=== PATIENT | female | born 1950 | race African-American/Black ===

== ENCOUNTER 2018-06-26 15:46 | Emergency (ER) | payer OTHER ==
[2018-06-26 15:53] VITALS: BP 160/80; PULSE 100; TEMP 98.2; BMI 30.2
--- NOTE | 2018-06-26 15:53 | PDOC ---
Rapid Medical Evaluation Time Seen by Provider: 06/26/18 15:51 Medical Evaluation: Allergies Allergy/AdvReac Type Severity Reaction Status Date / Time No Known Allergies Allergy Verified 04/06/14 14:15 I have performed a brief in-person evaluation of this patient. The patient presents with a chief complaint of: itch rash x 1 week. Pertinent physical exam findings: small bites to arms I have ordered the following: nothing The patient will proceed to the ED for further evaluation. Discharge Disposition - Diagnosis Rash and nonspecific skin eruption - Referrals - Patient Instructions - Post Discharge Activity
--- NOTE | 2018-06-26 16:28 | PDOC ---
History of Present Illness - General Chief Complaint: Rash Stated Complaint: RASH Time Seen by Provider: 06/26/18 15:51 - History of Present Illness Initial Comments: 68-year-old female with a past medical history significant for hypertension presents for evaluation of diffuse rash on her body times one week. She first noticed a rash on her neck which then extends to her back and bilateral upper extremities. She has no other associated symptoms besides itching no systemic symptoms 06/26/18 16:22 Past History - Past Medical History Allergies/Adverse Reactions: Allergies Allergy/AdvReac Type Severity Reaction Status Date / Time No Known Allergies Allergy Verified 06/26/18 15:53 Home Medications: Ambulatory Orders Ibuprofen [Motrin -] 400 mg PO DAILY PRN 12/03/13 Docusate Sodium [Colace] 100 mg PO TID #90 capsule 04/06/14 Hemorrhoidal Rectal Ointment [Anusol] 30 gm NR TID #1 tube 04/06/14 Lisinopril/Hydrochlorothiazide [Lisinopril-Hctz 20-12.5 mg Tab] 1 each PO DAILY #14 tablet 04/06/14 Permethrin 60 gm TP ONCE #1 cream..g. 06/26/18 COPD: No HTN: Yes - Surgical History Abdominal Surgery: Yes ("LT TUBES GROWED TO ABD WALL") Appendectomy: Yes - Immunization History Immunization Up to Date: Yes - Suicide/Smoking/Psychosocial Hx Smoking History: Current some day smoker Have you smoked in the past 12 months: Yes Number of Cigarettes Smoked Daily: 6 Information on smoking cessation initiated: No Hx Alcohol Use: No Drug/Substance Use Hx: No Substance Use Type: None Review of Systems - Review of Systems Integumentary: Yes: Pruritus, Rash All Other Systems: Reviewed and Negative *Physical Exam - Vital Signs Last Vital Signs Temp Pulse Resp BP Pulse Ox 98.2 F 100 H 20 160/80 98 06/26/18 15:51 06/26/18 15:51 06/26/18 15:51 06/26/18 15:51 06/26/18 15:51 - Physical Exam Comments: There is a diffuse rash would interdigital involvement on both hands. Both upper extremities back and neck. There is no indication of secondary infection there is no areas of induration warmth or fluctuance. The rash is maculopapular. 06/26/18 16:23 *DC/Admit/Observation/Transfer Diagnosis at time of Disposition: Scabies infestation Diagnosis at time of Disposition: (Ruled Out): Rash and nonspecific skin eruption - Discharge Dispostion Disposition: HOME Condition at time of disposition: Stable Decision to Admit order: No - Referrals Referrals: Nick An MD [Primary Care Provider] - - Patient Instructions Printed Discharge Instructions: Scabies, DI for Scabies Additional Instructions: You must wash all bedding and clothing in hot water. Use to cream as directed and repeat the process in 7 days. Follow-up with her primary care physician for further evaluation and treatment options. - Post Discharge Activity
== END 2018-06-26 16:35 | disposition home or self-care (01) ==
LOC: JERFT 15:46
DX: B86 Scabies (principal); I10 Essential (primary) hypertension; F17.210 Nicotine dependence, cigarettes, uncomplicated
CPT/HCPCS: 99281-25

== ENCOUNTER 2019-01-31 18:44 | Emergency (ER) | payer OTHER ==
[2019-01-31 19:22] VITALS: BP 161/84; PULSE 92; TEMP 98.4
[2019-01-31] MEDS ORDERED: NAPROXEN 500 MG TABLET (FP) PO ONE (20:18)
[2019-01-31] MEDS ORDERED: NAPROXEN 500 MG TABLET (FP) ONE (20:20)
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
== END 2019-01-31 20:37 | disposition home or self-care (01) ==
LOC: JERFT 18:44 → JER 18:44 → JERFT 20:37
DX: M12.812 Other specific arthropathies, not elsewhere classified, left shoulder (principal); V79.5 Passenger on bus injured in collision with other and unspecified motor vehicles in traffic accident
CPT/HCPCS: 99281-25

== ENCOUNTER 2019-02-16 09:30 | Emergency (ER) | payer OTHER ==
[2019-02-16 10:28] VITALS: BMI 30.2
[2019-02-16] MEDS ORDERED: morphine CARPU-JECT 4 MG/1 ML DISP.SYRIN IVPUSH ONE (10:59)
[2019-02-16] MEDS ORDERED: LIDOCAINE 5% TOPICAL PATCH TP ONE (11:10)
[2019-02-16] MEDS ORDERED: ACETAMINOPHEN 500 MG TABLET (FP) PO ONE (11:10)
[2019-02-16] MEDS ORDERED: traMADol HCL 50 MG TABLET PO ONE (11:10)
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
[2019-02-16] MEDS ORDERED: traMADol HCL 50 MG TABLET ONE (11:34)
[2019-02-16] MEDS ORDERED: LIDOCAINE 5% TOPICAL PATCH ONE (11:34)
[2019-02-16] MEDS: ACETAMINOPHEN 325 MG TABLET (FP) PO ONE ×2 (11:44→11:55)
[2019-02-16] MEDS ORDERED: ACETAMINOPHEN 1000 MG/100 ML VIAL (NON FORMULARY) IVPB ONE (11:46)
[2019-02-16 11:47] LABS: BASO % 0.6 % (0-2.0); EOS % 0.4 % (0-4.5); HEMOGLOBIN 11.4 GM/dL (10.7-15.3); LYMPH % 31.1 % (8-40); MCH 27.6 pg (25.7-33.7); MCHC 33.4 g/dl (32.0-36.0); MEAN CELL VOLUME 82.7 fl (80-96); MEAN PLT VOLUME 8.4 fl (7.5-11.1); MONO % 14.4 % (3.8-10.2); NEUT % 53.5 % (42.8-82.8); PLATELET COUNT 302 K/MM3 (134-434); RBC 4.11 M/mm3 (3.60-5.2); WHITE BLOOD COUNT 5.4 K/mm3 (4.0-10.0)
[2019-02-16] MEDS ORDERED: ACETAMINOPHEN INJECTION 100 ML IVPB ONE (11:48)
[2019-02-16 12:08] LABS: INR 1.15 (0.83-1.09); PROTHROMBIN TIME (PATIENT) 13.6 SEC (9.7-13.0)
[2019-02-16 12:28] LABS: ALBUMIN 3.2 g/dl (3.4-5.0); ALK PHOS 93 U/L (45-117); ANION GAP 8 MMOL/L (8-16); BILIRUBIN,TOTAL 0.4 mg/dL (0.2-1); BLOOD UREA NITROGEN 21 mg/dL (7-18); CALCIUM 8.9 mg/dL (8.5-10.1); CHLORIDE 104 mmol/L (98-107); CO2 23 mmol/L (21-32); CREATININE 0.9 mg/dL (0.55-1.3); GLUCOSE,RANDOM 89 mg/dL (74-106); POTASSIUM 4.1 mmol/L (3.5-5.1); SGOT/AST 30 U/L (15-37); SGPT/ALT 11 U/L (13-61); SODIUM 135 mmol/L (136-145); TOT PROT 7.3 g/dl (6.4-8.2)
[2019-02-16] MEDS ORDERED: KETOROLAC TROMETHAMINE 15 MG/ML VIAL IVPUSH ONE (14:30)
[2019-02-16] MEDS ORDERED: KETOROLAC TROMETHAMINE 15 MG/ML VIAL ONE (14:45)
[2019-02-16 15:25] VITALS: BP 125/75; PULSE 83; TEMP 98.2
[2019-02-16] MEDS ORDERED: METOPROLOL TARTRATE 25 MG TABLET (FP) ONE (17:35)
[2019-02-16] MEDS ORDERED: LIDOCAINE PATCH REMOVAL MC SCH (22:00)
--- NOTE | 2019-02-17 14:44 | EKG ---
Test Reason : Blood Pressure : / mmHG Vent. Rate : 085 BPM Atrial Rate : 085 BPM P-R Int : 158 ms QRS Dur : 086 ms QT Int : 356 ms P-R-T Axes : 057 007 057 degrees QTc Int : 423 ms NORMAL SINUS RHYTHM NORMAL ECG WHEN COMPARED WITH ECG OF 03-DEC-2013 19:06, NO SIGNIFICANT CHANGE WAS FOUND Confirmed by Evaristo Nixon ([id number]) on 02/17/2019 2:44:09 PM Referred By: Confirmed By:Evaristo Nixon
== END 2019-02-16 15:35 | disposition home or self-care (01) ==
LOC: JER 09:30
PROC: 3E033NZ Introduction of Analgesics, Hypnotics, Sedatives into Peripheral Vein, Percutaneous Approach (ICD-10-PCS; principal; 2019-02-16)
PROC: 3E0333Z Introduction of Anti-inflammatory into Peripheral Vein, Percutaneous Approach (ICD-10-PCS; 2019-02-16)
DX: M54.16 Radiculopathy, lumbar region (principal); I10 Essential (primary) hypertension; R26.2 Difficulty in walking, not elsewhere classified
CPT/HCPCS: 36415; 72100-TC-FY; 72125-TC; 80053; 85025; 85610; 93005; 93010; 96374; 96375; 99284-25; J0131

== ENCOUNTER 2021-10-29 13:32 | Emergency (ER) | payer OTHER ==
[2021-10-29 13:38] VITALS: BP 133/79; TEMP 98; BMI 28.5
[2021-10-29] MEDS ORDERED: KETOROLAC TROMETHAMINE 15 MG/ML VIAL IM ONE (14:43)
[2021-10-29] MEDS ORDERED: METHOCARBAMOL 500 MG TABLET PO ONE (14:43)
[2021-10-29] MEDS ORDERED: DEXAMETHASONE SOD PHOSPHATE 10 MG/1 ML VIAL IM ONE (14:43)
[2021-10-29] MEDS ORDERED: LIDOCAINE 5% TOPICAL PATCH TP ONE (14:45)
[2021-10-29] MEDS ORDERED: DEXAMETHASONE SOD PHOSPHATE 10 MG/1 ML VIAL ONE (15:01)
[2021-10-29] MEDS ORDERED: METHOCARBAMOL 500 MG TABLET ONE (15:01)
[2021-10-29] MEDS ORDERED: KETOROLAC TROMETHAMINE 30 MG/1 ML VIAL ONE (15:01)
[2021-10-29] MEDS ORDERED: LIDOCAINE 5% TOPICAL PATCH ONE (15:01)
[2021-10-29 15:23] VITALS: PULSE 88
[2021-10-29] MEDS ORDERED: LIDOCAINE PATCH REMOVAL MC ONE (22:00)
== END 2021-10-29 15:23 | disposition home or self-care (01) ==
LOC: JER 13:32 → JERFT 13:32
PROC: 3E023GC Introduction of Other Therapeutic Substance into Muscle, Percutaneous Approach (ICD-10-PCS; principal; 2021-10-29)
DX: M54.31 Sciatica, right side (principal)
CPT/HCPCS: 99284-25; J1100

== ENCOUNTER 2022-10-17 17:29 | Emergency (ER) | payer OTHER ==
[2022-10-17 18:03] VITALS: TEMP 98; BMI 29.2
[2022-10-17 19:54] VITALS: BP 138/76; PULSE 76; RESP 17
[2022-10-17] MEDS ORDERED: MAG HYDROX/AL HYDROX/SIMETH 30 ML UNIT-DOSE CUP PO ONE (20:03)
[2022-10-17] MEDS ORDERED: MAG HYDROX/AL HYDROX/SIMETH 30 ML UNIT-DOSE CUP ONE (20:20)
== END 2022-10-17 21:16 | disposition home or self-care (01) ==
LOC: JER 17:29
DX: R09.89 Other specified symptoms and signs involving the circulatory and respiratory systems (principal)
CPT/HCPCS: 70360-TC-FY; 71045-TC-FY; 99284-25